=== PATIENT | male | born 1955 | race Caucasian/White ===

== ENCOUNTER 2018-10-30 10:26 | Day surgery (SDC) | payer OTHER ==
[~2018-10-30] VITALS: Ht 177.8 cm; Wt 78.3 kg
[~2018-10-30 10:26] MED LIST: ASPIRIN; SIMVASTATIN
--- NOTE | 2018-10-30 11:17 | PREAC ---
Date/Time of Note Date/Time of Note DATE: 10/30/18 TIME: 11:16 Anesthesia Eval and Record Evaluation Time Pre-Procedure Interview DATE: 10/30/18 TIME: 11:16 Age 63 Sex male NPO: 8 hrs Preoperative diagnosis Disphasia, Abdominal Pain Planned procedure EGD, Colonoscopy Past Medical History Past Medical History: Includes Cardio: Dyslipidemia Surgery & Anesthesia Issues No known issue Meds Anticoagulation: No Beta Michael within 24 hr: No Reason Beta Michael not given: Pt. not on B-Michael Reported Medications [Simvastatin] No Conflict Check 12/21/15 [Aspirin] No Conflict Check 12/21/15 Meds reviewed: Yes Allergies Coded Allergies: Penicillins (Verified Allergy, Severe, HIVES, 12/21/15) Allergies Reviewed: Yes Labs/Studies Labs Reviewed: Reviewed by anesthesiologist test: N/A Pre-procedure Exam Airway: Adequate mouth opening Mallampati: Mallampati II Teeth: Normal Lung: Normal Heart: Normal ASA Physical Status ASA physical status: 2 Emergency: None Planned Anesthetic General/MAC: MAC Pre-operative Attestations Prior to commencing anesthesia and surgery, the patient was re-evaluated, there was verification of: *The patient's identity *The results of appropriate recent lab work and preoperative vital signs *The above evaluation not changing prior to induction *Anesthetic plan, risk benefits, alternative and complications discussed with patient/family; questions answered; patient/family understands, accepts and wishes to proceed. ISRAEL ANDRADE MD Oct 30, 2018 11:17
[2018-10-30 11:19] VITALS: Ht 177.8 cm; Wt 78.3 kg
[2018-10-30] MEDS ORDERED: PROPOFOL 40 ML ONE (11:19)
[2018-10-30 11:30] VITALS: BP 129/76; PULSE 85; RESP 19
--- NOTE | 2018-10-30 12:12 | PAC ---
Date/Time of Note Date/Time of Note DATE: 10/30/18 TIME: 12:11 Post-Anesthesia Notes Post-Anesthesia Note Last documented vital signs VSS Activity: WNL Respiratory function: WNL Cardiovascular function: WNL Mental status: Baseline Pain reasonably controlled: Yes Hydration appropriate: Yes Nausea/Vomiting absent: Yes ISRAEL ANDRADE MD Oct 30, 2018 12:12
[2018-10-30 12:40] VITALS: BP 112/62; PULSE 80; RESP 18
== END 2018-10-30 12:53 | disposition home or self-care (01) ==
LOC: GIL 10:26
PROVIDERS: ATTEND Internal Medicine Gastroenterology
DX: R19.4 Change in bowel habit (principal); K64.8 Other hemorrhoids; K44.9 Diaphragmatic hernia without obstruction or gangrene; K21.9 Gastro-esophageal reflux disease without esophagitis; K29.30 Chronic superficial gastritis without bleeding
CPT/HCPCS: 88305; 88312